=== PATIENT | female | born 1970 ===

== ENCOUNTER → 2017-12-06 10:03 | Outpatient (CLI) | payer OTHER | END | disposition home or self-care (01) | LOC: LAB 10:03 | DX: R10.9 Unspecified abdominal pain (principal); R51 Headache ==

== ENCOUNTER → 2017-12-06 | Outpatient (CLI) | payer OTHER ==
[~2017-12-06] VITALS: Ht 152.4 cm; Wt 68.0 kg
[~2017-12-06] MED LIST: CATAFLAM50 MG PO; CORTISPORIN EAR10 M1 OT; DICY20TA PO; GILTUSS TR TAB1 EACH PO; NABUMETONE500 MG PO; ORPH100T PO; PRILOSEC OTC20 MG PO; PRILOSEC40 MG PO; VOLTAREM 50 MG PO; VOLTAREM 75MG PO; ZANTAC300 MG PO; ZYRTEC10 MG PO
== END | disposition home or self-care (01) ==
LOC: PPHC 08:53
DX: R10.13 Epigastric pain (principal)

== ENCOUNTER 2018-11-12 16:12 | Outpatient (CLI) | payer OTHER | END 2018-11-12 16:21 | disposition home or self-care (01) | LOC: RAD 16:12 | DX: M54.5 Low back pain (principal); M54.6 Pain in thoracic spine ==

== ENCOUNTER 2018-11-14 08:38 | Outpatient (CLI) | payer OTHER | END 2018-11-14 08:49 | disposition home or self-care (01) | LOC: RAD 08:38 | DX: M79.622 Pain in left upper arm (principal); M25.522 Pain in left elbow ==

== ENCOUNTER 2018-11-26 00:18 | Emergency (ER) | payer OTHER ==
[~2018-11-26] VITALS: Ht 160 cm; Wt 66.2 kg
[2018-11-26] MEDS ORDERED: ALBUTEROL2.5 MG/3 M IH (04:57)
[2018-11-26] MEDS ORDERED: ZYNCOF 20-400120 ML PO (04:57)
[2018-11-26] MEDS ORDERED: MEDROL8 MG PO (04:57)
== END 2018-11-26 05:09 | disposition home or self-care (01) ==
LOC: ER 00:18
DX: J06.9 Acute upper respiratory infection, unspecified (principal)

== ENCOUNTER 2019-11-30 22:06 | Emergency (ER) | payer OTHER ==
[~2019-11-30] VITALS: Ht 160 cm; Wt 62.6 kg
[~2019-11-30 22:06] MED LIST changes: +ALBUTEROL2.5 MG/3 M IH; +MEDROL8 MG PO; +ZYNCOF 20-400120 ML PO
== END 2019-12-01 01:41 | disposition home or self-care (01) ==
LOC: ER 22:06
DX: R00.2 Palpitations (principal)

== ENCOUNTER 2019-12-09 09:25 | Outpatient (CLI) | payer OTHER | END 2019-12-09 09:31 | disposition home or self-care (01) | LOC: LAB 09:25 | DX: J11.1 Influenza due to unidentified influenza virus with other respiratory manifestations (principal); R05 Cough ==